=== PATIENT | female | born 1930 | race Caucasian/White ===

== ENCOUNTER 2017-07-08 21:47 | Emergency (ER) | payer MEDICARE, OTHER ==
[~2017-07-08] VITALS: Ht 152.4 cm; Wt 66.7 kg
[~2017-07-08 21:47] MED LIST: UNKNOWN BP PILL; Z LESCOL PO; Z.0.OXYBUTYNIN CHLOR PO
--- NOTE | 2017-07-08 22:59 | Diagnostic Imaging Report ---
EXAM: ANKLE 3+ VIEWS LEFT, AP, lateral and oblique DATE: 07/08/2017 10:15 PM Time stamp on exam: 1926 hours INDICATION: Stepdown, fell and twisted ankle, left lateral side of ankle pain COMPARISON: None FINDINGS: BONES: Acute, mildly displaced fracture of the distal fibula extending above the plafond. JOINTS: No malalignment. SOFT TISSUES: Soft tissue swelling around the ankle. IMPRESSION: Acute, mildly displaced fracture of the distal fibula extending above the plafond. Signed by: Dr. July Thomas M.D. on 07/08/2017 10:55 PM
[2017-07-09] MEDS ORDERED: HYDROCODONE/APAP 5MG-325MG TAB PO ONE (01:00)
[2017-07-09] MEDS ORDERED: HYDROCODONE/APAP 5MG-325MG TAB ONE (01:03)
--- NOTE | 2017-07-09 02:08 | Diagnostic Imaging Report ---
EXAM: LOWER LEG LEFT, AP and lateral DATE: 07/09/2017 1:12 AM Time stamp on exam: 2233 hours INDICATION: Distal fibular fracture with proximal fibular tenderness COMPARISON: None FINDINGS: BONES: Stable mildly displaced fracture of the distal fibula extending above the plafond. JOINTS: No malalignment. SOFT TISSUES: Normal IMPRESSION: No displaced proximal fibular fracture. Limited view of the fibular head on crosstable lateral view. Stable mildly displaced fracture of the distal fibula extending above the plafond. Signed by: Dr. July Thomas M.D. on 07/09/2017 2:04 AM
== END 2017-07-09 03:47 | disposition home or self-care (01) ==
LOC: ER 21:47
DX: S82.492A Other fracture of shaft of left fibula, initial encounter for closed fracture (principal); W18.39XA Other fall on same level, initial encounter; Y92.008 Other place in unspecified non-institutional (private) residence as the place of occurrence of the external cause; I10 Essential (primary) hypertension; Z85.3 Personal history of malignant neoplasm of breast
CPT/HCPCS: 99284

== ENCOUNTER 2018-05-30 07:30 | Emergency (ER) | payer MEDICARE, OTHER ==
[~2018-05-30] VITALS: Ht 152.4 cm; Wt 66.7 kg
--- OUTSIDE RECORDS SUMMARY | 2018-05-30 07:34 | XMS REPORT ---
[facility] Address Unknown Phone Unavailable Care Team Providers Care Fugitive Investigator Name Role Phone Ghulam JIMENEZ Unavailable Unavailable Problems This patient has no known problems. Allergies, Adverse Reactions, Alerts This patient has no known allergies or adverse reactions. Medications This patient has no known medications. Results Test Description Test Time Test Comments Text Results Atomic Results Result Comments LOWER LEG LEFT [place] [address] Patient Name: CHRISTIANE EDMONDS MR #: [id number] : 1930 Age/Sex: 86/F Req #: [id number] Adm Physician: Ordered by: MONA JIMENEZ MD Report #: [id number] Location: ER Room/Bed: Procedure: [id number] DX/LOWER LEG LEFT Exam Date: 07/09/17 Exam Time: 0135 REPORT STATUS: Signed EXAM: LOWER LEG LEFT, AP and lateral DATE: 07/09/2017 1:12 AM Time stamp on exam: 2233 hours INDICATION: Distal fibular fracture with proximal fibular tenderness COMPARISON: None FINDINGS: BONES: Stable mildly displaced fracture of the distal fibula extending above the plafond. JOINTS: No malalignment. SOFT TISSUES: Normal IMPRESSION: No displaced proximal fibular fracture. Limited view of the fibular head on crosstable lateral view. Stable mildly displaced fracture of the distal fibula extending above the plafond. Signed by: Dr. Nimesh Thomas M.D. on 07/09/2017 2:04 AM Dictated By: NIMESH THOMAS MD 3 Transcribed By: SUZY on 07/09/17203 COPY TO: MONA JIMENEZ MD ANKLE 3+ VIEWS LEFT [place] [address] Patient Name: CHRISTIANE EDMONDS MR #: [id number] : 1930 Age/Sex: 86/F Req #: [id number] Adm Physician: Ordered by: MONA JIMENEZ MD Report #: [id number] Location: ER Room/Bed: Procedure: [id number] DX/ANKLE 3+ VIEWS LEFT Exam Date: 07/08/17 Exam Time: 2229 REPORT STATUS: Signed EXAM: ANKLE 3+ VIEWS LEFT, AP, lateral and oblique DATE: 07/08/2017 10:15 PM Time stamp on exam: 1926 hours INDICATION: Stepdown, fell and twisted ankle, left lateral side of ankle pain COMPARISON: None FINDINGS: BONES: Acute, mildly displaced fracture of the distal fibula extending above the plafond. JOINTS: No malalignment. SOFT TISSUES: Soft tissue swelling around the ankle. IMPRESSION: Acute, mildly displaced fracture of the distal fibula extending above the plafond. Signed by: Dr. Nimesh Thomas M.D. on 07/08/2017 10:55 PM Dictated By: NIMESH THOMAS MD 54 Transcribed By: SUZY on 07/08/172254 COPY TO: MONA JIMENEZ MD
[2018-05-30] MEDS ORDERED: SODIUM CHLORIDE 0.9% 1000ML 1,000 ML IV STA (07:46)
[2018-05-30] MEDS ORDERED: MORPHINE SULFATE INJ 4 MG/ML INJ IV STA (07:46)
[2018-05-30] MEDS ORDERED: KETOROLAC TROMETHAMINE 30 MG/ML VIAL IV ONE (08:00)
[2018-05-30] MEDS ORDERED: FAMOTIDINE 20 MG/2 ML VIAL IV ONE (08:00)
[2018-05-30] MEDS ORDERED: PROMETHAZINE 12.5MG/ NACL 0.9% 12.5 MG/50 ML BAG IV ONE (08:00)
[2018-05-30] MEDS ORDERED: AZITHROMYCIN250 MG PO (08:04)
[2018-05-30] MEDS ORDERED: ANASTROZOLE1 MG PO (08:04)
[2018-05-30] MEDS ORDERED: PANTOPRAZOLE SO40 MG PO (08:04)
[2018-05-30] MEDS ORDERED: CALCIUM CARBON500 MG PO (08:04)
[2018-05-30] MEDS ORDERED: BENAZEPRIL HCL10 MG PO (08:04)
[2018-05-30] MEDS ORDERED: MORPHINE SULFATE 2 MG/ML SYR IV NR (08:15)
[2018-05-30] MEDS ORDERED: ONDANSETRON HCL INJ 2 MG/ML VIAL IV ONE (08:15)
[2018-05-30 08:43] LABS: BASOPHILS % 0.5 % (0.0-1.0); EOSINOPHILS # (AUTO) 0.1 (0.0-0.4); EOSINOPHILS % 1.1 % (0.0-6.0); HEMATOCRIT 43.2 % (34.2-44.1); HEMOGLOBIN 13.9 g/dL (12.0-16.0); LYMPHOCYTES # (AUTO) 1.5 (1.0-3.2); LYMPHOCYTES % 19.7 % (18.0-39.1); MEAN CORPUSCULAR HEMOGLOBIN 28.6 pg (28-32); MEAN CORPUSCULAR HGB CONC 32.2 g/dL (31-35); MEAN CORPUSCULAR VOLUME 88.9 fL (81-99); MONOCYTES # (AUTO) 0.4 (0.2-0.8); MONOCYTES % 5.9 % (4.4-11.3); NEUTROPHILS # (AUTO) 5.4 (2.1-6.9); NEUTROPHILS % 72.5 % (38.7-80.0); PLATELET COUNT 160 x10e3/uL (140-360); RED BLOOD COUNT 4.86 x10e6/uL (3.6-5.1); RED CELL DISTRIBUTION WIDTH 14.8 % (11.7-14.4)
--- NOTE | 2018-05-30 09:04 | Diagnostic Imaging Report ---
PROCEDURE:HIP LEFT 2-3 VW (+/- PELVIS) COMPARISON:None. INDICATIONS:OSTEOARTHRITIS FINDINGS: No acute, displaced fracture or dislocation. Mild joint space narrowing with marginal acetabular osteophytosis. Dystrophic calcification superomedial to the lesser trochanter. Nonaggressive appearing sclerotic focus in the proximal femoral diaphysis may represent an osteoma. Degenerative disc changes of the partially visualized lower lumbar spine. Atherosclerotic vascular calcifications. 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 No acute osseous abnormality. Dictated by: Reynold Manzanares M.D. on 05/30/2018 at 9:13 Electronically approved by: Reynold Manzanares M.D. on 05/30/2018 at 9:13
--- NOTE | 2018-05-30 09:05 | Diagnostic Imaging Report ---
PROCEDURE:X-RAY LEFT KNEE, ONE OR TWO VIEWS COMPARISON:None. INDICATIONS:OSTEOARTHRITIS FINDINGS: No acute, displaced fracture or dislocation. Mild tricompartmental joint space narrowing and marginal osteophytosis. Small nonspecific suprapatellar joint effusion. Atherosclerotic vascular calcifications. CONCLUSION: No acute osseous abnormality. Mild tricompartmental degenerative joint disease with a nonspecific small suprapatellar joint effusion. Dictated by: Reynold Manzanares M.D. on 05/30/2018 at 9:14 Electronically approved by: Reynold Manzanares M.D. on 05/30/2018 at 9:14
--- NOTE | 2018-05-30 09:09 | Diagnostic Imaging Report ---
PROCEDURE:X-RAY LEFT LOWER LEG COMPARISON:None. INDICATIONS:OSTEOARTHRITIS FINDINGS: No acute, displaced fracture or dislocation. Posttraumatic deformity of the distal fibula. Mild degenerative changes of the knee as previously discussed. Atherosclerotic vascular calcifications. CONCLUSION: No acute osseous abnormalities. Dictated by: Reynold Manzanares M.D. on 05/30/2018 at 9:18 Electronically approved by: Reynold Manzanares M.D. on 05/30/2018 at 9:18
[2018-05-30 09:37] LABS: ALANINE AMINOTRANSFERASE 9 IU/L (0-55); ALBUMIN 3.6 g/dL (3.5-5.0); ALBUMIN/GLOBULIN RATIO 1.5 (0.8-2.0); ALKALINE PHOSPHATASE 52 IU/L (40-150); ANION GAP 14.3 mmol/L (8-16); BLOOD UREA NITROGEN 16 mg/dL (7-26); BUN/CREATININE RATIO 24 (6-25); CALCIUM 8.4 mg/dL (8.4-10.2); CARBON DIOXIDE 21 mmol/L (22-29); CHLORIDE 105 mmol/L (98-107); CREATINE KINASE 67 IU/L (29-168); CREATININE, SERUM 0.66 mg/dL (0.57-1.11); EST GLOMERULAR FILTRATION RATE > 60 ML/MIN (60-); GLUCOSE 94 mg/dL (74-118); POTASSIUM 3.3 mmol/L (3.5-5.1); SODIUM 137 mmol/L (136-145)
[2018-05-30] MEDS ORDERED: SODIUM CHLORIDE 0.9% 500ML 500 ML IV STA (10:18)
[2018-05-30] MEDS ORDERED: SODIUM CHLORIDE 0.9% 500ML 500 ML ONE (10:30)
[2018-05-30 11:54] LABS: BILIRUBIN,URINE NEGATIVE (NEGATIVE); CLARITY,URINE SL CLOUDY (CLEAR); COLOR,URINE YELLOW (YELLOW); KETONES,URINE NEGATIVE (NEGATIVE); LEUKOCYTE ESTERASE ,URINE TRACE (NEGATIVE); NITRITE,URINE NEGATIVE (NEGATIVE); PROTEIN,URINE DIPSTICK NEGATIVE (NEGATIVE); URINE UROBILINOGEN 0.2 mg/dL (0.2 - 1)
[2018-05-30 12:04] LABS: BACTERIA,URINE MODERATE /HPF; EPITHELIAL CELLS,URINE MODERATE /LPF; RBC,URINE 0-5 /HPF (0-5)
[2018-05-30 12:05] LABS: MUCUS,URINE MANY (RARE)
[2018-05-30] MEDS ORDERED: CEFTRIAXONE SOD 1 GM VIAL IV ONE (12:15)
== END 2018-05-30 13:17 | disposition home or self-care (01) ==
LOC: ER 07:30
DX: M25.552 Pain in left hip (principal); M79.652 Pain in left thigh; M25.562 Pain in left knee; M25.572 Pain in left ankle and joints of left foot; M19.072 Primary osteoarthritis, left ankle and foot; M16.12 Unilateral primary osteoarthritis, left hip; M17.12 Unilateral primary osteoarthritis, left knee; N39.0 Urinary tract infection, site not specified
CPT/HCPCS: 36415; 73502; 73560; 73590; 80053; 81001; 82550; 82553; 84484; 85025; 93005; 99284; J0696; J1885; J2270; J2405; J7030; J7040